=== PATIENT | female | born 1990 | race Two or more races ===

== ENCOUNTER 2018-07-05 20:49 | Emergency (ER) | payer OTHER ==
[2018-07-05 20:56] VITALS: BP 115/69; PULSE 87; TEMP 98.6; BMI 40.6
--- NOTE | 2018-07-05 23:12 | PDOC ---
History of Present Illness - General Chief Complaint: Nausea Stated Complaint: ,Possible/NAUSEA Time Seen by Provider: 07/05/18 23:11 History Source: Patient - History of Present Illness Initial Comments: 07/06/18 01:12 28-year-old female reports that she had her period June 11 with 2 days of vaginal bleeding, patient believes she is . Negative urine at home patient reports nausea, heightened sensitivity to smell, breast tenderness. Denies vaginal bleeding, abdominal pain, urinary symptoms, flank pain epigastric pain. 07/06/18 01:21 Past History - Past Medical History Allergies/Adverse Reactions: Allergies Allergy/AdvReac Type Severity Reaction Status Date / Time No Known Drug Allergies Allergy Verified 07/05/18 20:56 Home Medications: Ambulatory Orders Nitrofurantoin Monohyd/M-Cryst [Macrobid -] 100 mg PO BID #14 capsule 07/06/13 Pnv with Ca,No.71/Iron/FA [ Vitamin Tablet] 1 each PO DAILY 07/06/13 Acetaminophen [Tylenol .Regular Strength -] 650 mg PO Q4H PRN #0 tablet Albuterol Sulfate Inhaler - [Ventolin HFA Inhaler -] 2 inh IH QIDR PRN #0 inh Anemia: No Asthma: Yes Cancer: No Cardiac Disorders: No COPD: No Diabetes: No HTN: No Seizures: No Thyroid Disease: No - Surgical History Abdominal Surgery: No - Reproductive History (#): 1 Para: 0 Cervical CA: No Dysfunctional Uterine Bleeding: No Ectopic : No Endometrial CA: No Polycystic Ovaries: No Therapeutic (s) & number: No Tubal Ligation: No Spontaneous : 0 - Immunization History Immunization Up to Date: Yes - Suicide/Smoking/Psychosocial Hx Smoking Status: No Smoking History: Never smoked Have you smoked in the past 12 months: No Number of Cigarettes Smoked Daily: 2 Hx Alcohol Use: No Drug/Substance Use Hx: No Hx Substance Use Treatment: No Review of Systems - Review of Systems Able to Perform ROS?: Yes Is the patient limited Green[place]ic proficient: No Constitutional: No: Symptoms Reported, See HPI, Chills, Diaphoresis, Fever, Loss of Appetite, Malaise, Night Sweats, Weakness, Weight Stable, Unintentional Wgt. Loss, Unexplained wgt Loss, Other ABD/GI: Yes: Nausea, Vomiting. No: Symptoms Reported, See HPI, Abdominal Distended, Abd. Pain w/ defecation, Blood Streaked Bowels, Constipated, Diarrhea , Difficulty Swallowing, Poor Appetite, Poor Fluid Intake, Rectal Bleeding, Indigestion, Abdominal cramping, Tarry Stools, Other : No: Symptoms Reported, See HPI, Burning, Dysuria, Discharge, Frequency, Flank Pain, Hematuria, Incontinence, Pain, Urgency, Testicular Mass, Testicular Swelling, Lesions, Testicular Pain, Other *Physical Exam - Vital Signs Last Vital Signs Temp Pulse Resp BP Pulse Ox 98.6 F 87 18 115/69 100 07/05/18 20:54 07/05/18 20:54 07/05/18 20:54 07/05/18 20:54 07/05/18 20:54 - Physical Exam General Appearance: Yes: Appropriately Dressed Respiratory/Chest: positive: Lungs Clear, Normal Breath Sounds Cardiovascular: positive: Regular Rhythm, Regular Rate Gastrointestinal/Abdominal: positive: Normal Bowel Sounds, Soft. negative: Tender Musculoskeletal: positive: Normal Inspection Extremity: positive: Normal Capillary Refill, Normal Inspection, Normal Range of Motion Integumentary: positive: Normal Color, Dry, Warm Neurologic: positive: Fully Oriented, Alert, Normal Mood/Affect, Motor Strength 12/12 ED Treatment Course - LABORATORY CBC & Chemistry Diagram: 07/05/18 23:50 Progress Note - Progress Note Progress Note: A: nausea and vomiting P: zofran odt labs beta hcg ua: patient refused. she reports that she is unable to go. no urinary symptoms. patient to follow up with PCP for further management of care, Medical Decision Making - Medical Decision Making 07/06/18 01:31 tolerated maida jean paul in the ED . will d/ c home patient to follow up in [address] [place] [address]. *DC/Admit/Observation/Transfer Diagnosis at time of Disposition: Nausea & vomiting Qualifiers: Vomiting type: unspecified Vomiting Intractability: non-intractable Qualified Code(s): R11.2 - Nausea with vomiting, unspecified - Discharge Dispostion Disposition: HOME Condition at time of disposition: Stable - Referrals - Patient Instructions Printed Discharge Instructions: DI for Vomiting -- Adult Additional Instructions: drink plenty of fluids start a BRAT ( bananas, rice apples toast) follow up with your doctor return to the ER if symptoms worsen - Post Discharge Activity Forms/Work/School Notes: Back to Work
[2018-07-05] MEDS ORDERED: PYRIDOXINE HCL (B-6) 100 MG TABLET PO ONE (23:21)
--- NOTE | 2018-07-05 23:43 | PDOC ---
*Physical Exam - Vital Signs Last Vital Signs Temp Pulse Resp BP Pulse Ox 98.6 F 87 18 115/69 100 07/05/18 20:54 07/05/18 20:54 07/05/18 20:54 07/05/18 20:54 07/05/18 20:54 Medical Decision Making - Medical Decision Making 07/05/18 23:42 Pt seen by the Advanced Practice Provider under my direct supervision Ancillary studies reviewed I agree with plan as outlined by the Advanced Practice Provider TIFFANY Roper
[2018-07-06 00:01] LABS: BASO % 0.7 % (0-2.0); HEMATOCRIT 36.7 % (32.4-45.2); HEMOGLOBIN 12.9 GM/dL (10.7-15.3); LYMPH % 36.4 % (8-40); MCH 30.6 pg (25.7-33.7); MCHC 35.1 g/dl (32.0-36.0); MEAN CELL VOLUME 87.1 fl (80-96); MEAN PLT VOLUME 8.3 fl (7.5-11.1); MONO % 6.5 % (3.8-10.2); NEUT % 55.4 % (42.8-82.8); PLATELET COUNT 289 K/MM3 (134-434); RBC 4.21 M/mm3 (3.60-5.2); RDW 13.8 % (11.6-15.6); WHITE BLOOD COUNT 9.9 K/mm3 (4.0-10.0)
[2018-07-06] MEDS ORDERED: ONDANSETRON *ODT* 4 MG TABLET SL ONE (00:52)
[2018-07-06] MEDS ORDERED: ONDANSETRON *ODT* 4 MG TABLET ONE (00:53)
== END 2018-07-06 01:48 | disposition home or self-care (01) ==
LOC: JER 20:49
DX: R11.2 Nausea with vomiting, unspecified (principal)
CPT/HCPCS: 36415; 84702; 85025; 99281-25; Q0162

== ENCOUNTER 2018-08-23 16:59 | Emergency (ER) | payer OTHER ==
[2018-08-23 17:15] VITALS: BP 121/75; PULSE 116; TEMP 99.3; BMI 39.2
[2018-08-23] MEDS ORDERED: ALBUTEROL SO4 2.5/IPRATROPIUM 0.5 INH SOL 3 ML VIAL.NEB. NEB ONE ×2 (17:17→17:25)
--- NOTE | 2018-08-23 17:19 | PDOC ---
Rapid Medical Evaluation Chief Complaint: Asthma Medical Evaluation: Allergies Allergy/AdvReac Type Severity Reaction Status Date / Time No Known Drug Allergies Allergy Verified 07/05/18 20:56 08/23/18 17:13 I have performed a brief in-person evaluation of this patient. The patient presents with a chief complaint of:per EMS= tight asthma attack - ran out of meds 24 hours ago. Given Combivents/ and Decadron 10mg IM. @ 4:15P, Pertinent physical exam findings: Tight insp exp rattles with wheezing I have ordered the following: Influenza/ UCG/ Duoneb The patient will proceed to the ED for further evaluation. 08/23/18 17:18 Discharge Disposition - Diagnosis Asthma Qualifiers: Asthma severity: severe Asthma persistence: unspecified Asthma complication type: unspecified Qualified Code(s): J45.909 - Unspecified asthma, uncomplicated - Referrals - Patient Instructions - Post Discharge Activity
[2018-08-23] MEDS ORDERED: DEXAMETHASONE SOD PHOSPHATE 10 MG/1 ML VIAL ONE (17:25)
--- NOTE | 2018-08-23 17:38 | PDOC ---
History of Present Illness - General Chief Complaint: Asthma Stated Complaint: Asthma Time Seen by Provider: 08/23/18 17:37 - History of Present Illness Initial Comments: Sadie Hurley is a 28yo obese woman with a PMH of allergy-induced asthma who presents with wheezing and chest tightness for 2 days. She reports that she generally does not have asthma symptoms and only has 2-3 attacks per year, generally during "pollen season" or when she has a URI. She uses albuterol as needed during those episodes. She states that her young son recently had a cold , and she started to have nasal congestion and runny nose two days ago. She also had a slight temperature elevation to 100.2 yesterday. She also started having wheezing and difficultly breathing yesterday, but she had run out of albuterol at home and was unable to treat her wheezing. She tried cough medicine without improvement. Today, her wheezing had worsened to the point that she felt that she needed evaluation. She denies any other recent symptoms, nausea/vomiting, significant cough. She has never been hospitalized or intubated for her asthma and has never seen a nut sifter for evaluation. Past History - Past Medical History Allergies/Adverse Reactions: Allergies Allergy/AdvReac Type Severity Reaction Status Date / Time No Known Drug Allergies Allergy Verified 08/23/18 17:15 Home Medications: Ambulatory Orders Nitrofurantoin Monohyd/M-Cryst [Macrobid -] 100 mg PO BID #14 capsule 07/06/13 Pnv with Ca,No.71/Iron/FA [ Vitamin Tablet] 1 each PO DAILY 07/06/13 Acetaminophen [Tylenol .Regular Strength -] 650 mg PO Q4H PRN #0 tablet Albuterol Sulfate Inhaler - [Ventolin HFA Inhaler -] 2 inh IH QIDR PRN #0 inh Albuterol Sulfate Inhaler - [Ventolin HFA Inhaler -] 1 - 2 inh PO Q4H #1 inhaler 08/23/18 Anemia: No Asthma: Yes Cancer: No Cardiac Disorders: No COPD: No Diabetes: No HTN: No Seizures: No Thyroid Disease: No - Surgical History Abdominal Surgery: No - Reproductive History (#): 1 Para: 0 Cervical CA: No Dysfunctional Uterine Bleeding: No Ectopic : No Endometrial CA: No Polycystic Ovaries: No Therapeutic (s) & number: No Tubal Ligation: No Spontaneous : 0 - Immunization History Immunization Up to Date: Yes - Suicide/Smoking/Psychosocial Hx Smoking Status: No Smoking History: Never smoked Have you smoked in the past 12 months: No Number of Cigarettes Smoked Daily: 2 Information on smoking cessation initiated: No Hx Alcohol Use: No Drug/Substance Use Hx: No Hx Substance Use Treatment: No Respiratory Specific PMHX - Complaint Specific PMHX Other History: Asthma Review of Systems - Review of Systems Comments:: General: No fevers, no chills, no weight or appetite change, no malaise HEENT: No changes in vision, no changes in hearing, +congestion CV: No chest pain, no palpitations, no LE edema Pulm: See HPI GI: No nausea or vomiting, no change in bowel habits, no melena : No frequency, no urgency, no dysuria Musc: No back pain, no joint swelling, no recent injury Skin: No rash, no lesions, no erythema Endo: No excessive thirst, no heat/cold intolerance Heme: No unusual bruising or bleeding, no swollen glands Neuro: No syncope, no numbness/tingling, no focal weakness Vasc: No claudication Psych: No recent change in mood, no SI or HI *Physical Exam - Vital Signs Last Vital Signs Temp Pulse Resp BP Pulse Ox 99.3 F 116 H 24 H 121/75 96 08/23/18 17:12 08/23/18 17:12 08/23/18 17:12 08/23/18 17:12 08/23/18 17:12 - Physical Exam Comments: General: Comfortable, no acute distress HEENT: PERRL, EOMI, MMM, voice normal, normal neck ROM, no LAD Cards: RRR, no murmur appreciated Pulm: Comfortable on room air, clear to auscultation bilaterally, no wheezing appreciated Abd: Soft, nontender, nondistended : No CVA tenderness Ext: Atraumatic. No LE edema. ROM intact. Strength 5/5 and equal bilaterally Vasc: Extremities WWP. Palpable radial and pedal pulses bilaterally Skin: Normal color, no rashes or lesions Neuro: A&Ox3, CN grossly intact, normal speech, motor/sensory grossly intact and symmetric Psych: Mood appropriate to situation Moderate Sedation - Procedure Monitoring Vital Signs: Procedure Monitoring Vital Signs Temperature 99.3 F 08/23/18 17:12 Pulse Rate 116 H 08/23/18 17:12 Respiratory Rate 24 H 08/23/18 17:12 Blood Pressure 121/75 08/23/18 17:12 O2 Sat by Pulse Oximetry (%) 96 08/23/18 17:12 ED Treatment Course - Medications Given in the ED: ED Medications Discontinued Medications Generic Name Dose Route Start Last Admin Trade Name Freq PRN Reason Stop Dose Admin Albuterol/Ipratropium 1 amp 08/23/18 17:17 08/23/18 17:23 Duoneb - NEB 08/23/18 17:18 1 amp ONCE ONE Administration Medical Decision Making - Medical Decision Making 08/23/18 19:02 Sadie Hurley is a 28yo woman with a PMH of occasional asthma who presents with wheezing and chest tightness at home after 2 days of nasal congestion and runny nose. - Receved decadron prior to arrival - Symptoms improved significantly after 2x nebulizer treatments - CXR and influenza ordered, but not yet completed. Given symptoms c/w viral URI including rhinorrhea, congestion, slight temp elevation will cancel ordered tests and d/c home. Discussed with patient, and she feels comfortable with this plan. Will re-prescribe albuterol to be used at home for additional symptoms. Discussed with Dr Roper. Gissell Parks PGY1 *DC/Admit/Observation/Transfer Diagnosis at time of Disposition: Asthma Qualifiers: Asthma severity: severe Asthma persistence: unspecified Asthma complication type: unspecified Qualified Code(s): J45.909 - Unspecified asthma, uncomplicated - Discharge Dispostion Disposition: HOME Condition at time of disposition: Stable Decision to Admit order: No - Prescriptions Prescriptions: Albuterol Sulfate Inhaler - [Ventolin HFA Inhaler -] 1 - 2 inh PO Q4H #1 inhaler - Referrals - Patient Instructions Printed Discharge Instructions: Asthma -- Adult Additional Instructions: Discharge Instructions: - You were seen in the emergency department for wheezing and chest tightness caused by your asthma. Your symptoms improved with breathing treatments in the hospital. - You have been prescribed albuterol to be used up to every 4 hours as needed for continued symptoms at home. Home Care: - Use your home albuterol as needed for symptoms every 4 hours. If you need the inhaler much more frequently to control your symptoms, you need to see your doctor or return to the ED - For continued congestion, you can consider using a humidifier by your bed or hot, steamy shower. You could also consider using an anti-inflammatory such as ibuprofen (400-600mg every 6-8 hours) or over the counter Sudafed (available at the pharmacy counter, follow the directions on the box) for your symptoms. If you need these for more than 2-3 days, follow up with your primary doctor. Follow Up; - Make an appointment to see your primary doctor within the next week for follow up - Seek immediate medical care if you have worsening shortness of breath despite treatment, persistent high fever over 101F, - Post Discharge Activity Forms/Work/School Notes: Back to Work
--- NOTE | 2018-08-23 19:00 | PDOC ---
Attending Attestation - Resident Resident Name: Gissell Parks - ED Attending Attestation I have performed the following: I have examined & evaluated the patient, The case was reviewed & discussed with the resident, I agree w/resident's findings & plan, Exceptions are as noted - HPI HPI: 08/23/18 18:59 28-year-old female presents with upper respiratory infection with nasal congestion, rhinorrhea and cough. - Physicial Exam PE: 08/23/18 20:07 head ncat eyes rich eomi neck supple lungs cta b/l cvs [id number] and protuberant,nontender ext no edema no cva tenderness skin warm and dry neuro axox3,ambulatory,no gross focal neuro deficits - Medical Decision Making 08/23/18 20:09 pt received decadron and bronchodilator treatments and her symptoms improved imp URI w mild reactive airway ds
[2018-08-23] MEDS ORDERED: ALBUTEROL SO4 8 GM HFA INHALER IH ONE (19:23)
[2018-08-23] MEDS: ALBUTEROL SO4 2.5/IPRATROPIUM 0.5 INH SOL 3 ML VIAL.NEB. NEB SCH (19:33)
== END 2018-08-23 20:19 | disposition home or self-care (01) ==
LOC: JER 16:59
PROC: 3E0F7GC Introduction of Other Therapeutic Substance into Respiratory Tract, Via Natural or Artificial Opening (ICD-10-PCS; principal; 2018-08-23)
PROC: 3E0F7GC Introduction of Other Therapeutic Substance into Respiratory Tract, Via Natural or Artificial Opening (ICD-10-PCS; 2018-08-23)
DX: J45.909 Unspecified asthma, uncomplicated (principal)
CPT/HCPCS: 94640; 99283-25

== ENCOUNTER 2021-09-04 14:26 | Emergency (ER) | payer OTHER ==
[2021-09-04 14:34] VITALS: BP 114/72; PULSE 91; TEMP 98; BMI 39.9
[2021-09-04] MEDS ORDERED: SODIUM CHLORIDE 0.9% 500 ML INFUS.BAG IV ONE (17:39)
[2021-09-04 18:40] LABS: EPI CELLS >36 /uL (0-25.1); HYALINE CASTS 5 /uL (0-3.1); URINE APPEARANCE CLOUDY; URINE BACTERIA 1503 /uL (0-1359); URINE BILIRUBIN NEGATIVE (NEGATIVE); URINE COLOR YELLOW; URINE GLUCOSE (UA) NEGATIVE (NEGATIVE); URINE KETONE NEGATIVE (NEGATIVE); URINE LEUK ESTERASE 1+ (NEGATIVE); URINE NITRITE NEGATIVE (NEGATIVE); URINE PROTEIN NEGATIVE (NEGATIVE); URINE WBC 82 /uL (0-25.8)
[2021-09-04 18:51] LABS: BASO % 0.3 % (0-2.0); EOS % 0.6 % (0-4.5); LYMPH % 26.2 % (8-40); MCH 29.1 pg (25.7-33.7); MCHC 34.4 g/dl (32.0-36.0); MEAN CELL VOLUME 84.7 fl (80-96); MEAN PLT VOLUME 7.8 fl (7.5-11.1); MONO % 5.9 % (3.8-10.2); PLATELET COUNT 304 10^3/uL (134-434); RBC 4.13 M/mm3 (3.60-5.2); RDW 13.5 % (11.6-15.6); WHITE BLOOD COUNT 11.7 K/mm3 (4.0-10.0)
[2021-09-04 19:08] LABS: CHLORIDE 105 mmol/L (98-107); SODIUM 137 mmol/L (136-145)
[2021-09-04 19:10] LABS: CALCIUM 9.3 mg/dL (8.5-10.1)
[2021-09-04 19:11] LABS: ANION GAP 9 MMOL/L (8-16); BLOOD UREA NITROGEN 7.3 mg/dL (7-18); CO2 23 mmol/L (21-32); GLUCOSE,RANDOM 72 mg/dL (74-106)
[2021-09-04 19:14] LABS: CREATININE 0.5 mg/dL (0.55-1.3); SGOT/AST 9 U/L (15-37); SGPT/ALT 24 U/L (13-61)
[2021-09-04 19:16] LABS: BILIRUBIN,TOTAL 0.2 mg/dL (0.2-1); TOT PROT 6.6 g/dl (6.4-8.2)
[2021-09-04 19:17] LABS: ALK PHOS 44 U/L (45-117)
[2021-09-04 20:27] LABS: URINE RBC 63.8 /uL (0-23.9)
== END 2021-09-04 19:59 | disposition home or self-care (01) ==
LOC: JER 14:26
DX: R55 Syncope and collapse (principal)
CPT/HCPCS: 36415; 80053; 81003; 84443; 84484; 85025; 87086; 93005; 93010; 99284-25

== ENCOUNTER 2022-08-15 04:27 | Day surgery (SDC) | payer OTHER ==
[2022-08-06 13:53] VITALS: BMI 39.9
[2022-08-15] MEDS ORDERED: KETAMINE HCL 500 MG/10 ML VIAL ONE (07:18)
[2022-08-15] MEDS ORDERED: MIDAZOLAM HCL 2 MG/2 ML SINGLE DOSE VIAL ONE (07:18)
[2022-08-15] MEDS ORDERED: PROPOFOL 40 ML ONE (07:25)
[2022-08-15] MEDS ORDERED: ROCURONIUM BROMIDE 50 MG/5 ML SYRINGE ONE ×2 (07:26→08:52)
[2022-08-15] MEDS ORDERED: BUPIVACAINE HCL/PF 0.5% (5MG/ML) 10 ML VIAL ONE (07:39)
[2022-08-15] MEDS ORDERED: DEXMEDETOMIDINE HCL 200 MCG/2 ML IVPB ONE (07:50)
[2022-08-15] MEDS ORDERED: ceFAZolin SODIUM 1 GM VIAL IVPB ONE (08:25)
[2022-08-15] MEDS ORDERED: HEPARIN NA (PORCINE) 5,000 UNITS/ML 1ML VIAL SQ ONE (08:30)
[2022-08-15] MEDS ORDERED: BUPIVACAINE HCL/PF 0.5% (5MG/ML) 10 ML VIAL IJ ONE (08:45)
[2022-08-15] MEDS ORDERED: PROPOFOL 20 ML ONE ×2 (08:47→08:55)
[2022-08-15] MEDS ORDERED: ONDANSETRON 4 MG/2 ML VIAL IVPUSH PRN (10:55)
[2022-08-15] MEDS: oxyCODONE HCL 5 MG TABLET PO PRN ×2 (14:00→15:00)
[2022-08-15] MEDS ORDERED: oxyCODONE HCL 5 MG TABLET ONE ×2 (14:01→14:51)
[2022-08-15 14:15] VITALS: RESP 20
[2022-08-15 17:36] VITALS: BP 110/65; PULSE 59; TEMP 97.7
== END 2022-08-15 17:00 | disposition home or self-care (01) ==
LOC: JASU-SURG 04:27
PROVIDERS: ATTEND Surgery
PROC: 8E0W4CZ Robotic Assisted Procedure of Trunk Region, Percutaneous Endoscopic Approach (ICD-10-PCS; 2022-08-15)
PROC: 0WUF4JZ Supplement Abdominal Wall with Synthetic Substitute, Percutaneous Endoscopic Approach (ICD-10-PCS; principal; 2022-08-15 08:00)
DX: K42.0 Umbilical hernia with obstruction, without gangrene (principal); K43.6 Other and unspecified ventral hernia with obstruction, without gangrene
CPT/HCPCS: 81025; 94760; J1644